=== PATIENT | male | born 1965 | race Caucasian/White ===

== ENCOUNTER → 2017-09-29 | Outpatient (CLI) | payer OTHER, BC ==
[~2017-09-29] MED LIST: BNC40 PO; KETO10TA PO; NRV/10 PO; OXYC-57 PO
[2017-09-29 12:19] LABS: BASO % 0.4 %; BASO ABS # 0.04 K/uL (0-0.2); EOS % 0.3 %; EOS ABS # 0.03 K/uL (0-0.5); HEMATOCRIT 47.9 % (42-52); IG# 0.04 K/uL (0.00-0.02); LYMPH % 17.3 %; LYMPH ABS # 1.92 K/uL (1.2-3.4); MEAN CELL VOLUME 87.6 fL (80-100); MEAN CORPUSCULAR HEMOGLOBIN 31.1 pg (25-34); MEAN CORPUSCULAR HGB CONC 35.5 g/dl (32-36); MEAN PLATELET VOLUME 8.6 fL (7.4-10.4); MONO % 8.8 %; MONO ABS # 0.97 K/uL (0.11-0.59); NEUT % 72.8 %; NEUT ABS # 8.08 K/uL (1.4-6.5); PLATELET COUNT 298 K/uL (130-400); RED CELL DISTRIBUTION WIDTH SD 41.9 fL (36.4-46.3); WHITE BLOOD COUNT 11.08 K/uL (4.8-10.8)
[2017-09-29 12:40] LABS: POTASSIUM 4.1 mmol/L (3.5-5.1)
== END | disposition home or self-care (01) ==
LOC: C.CPL 11:11
PROVIDERS: ATTEND Orthopaedic Surgery Sports Medicine
DX: Z01.810 Encounter for preprocedural cardiovascular examination (principal); Z01.812 Encounter for preprocedural laboratory examination; S83.209A Unspecified tear of unspecified meniscus, current injury, unspecified knee, initial encounter; X58.XXXA Exposure to other specified factors, initial encounter

== ENCOUNTER → 2017-10-05 | Day surgery (SDC) | payer OTHER, BC ==
[2017-10-04 11:19] VITALS: Ht 180.3 cm; Wt 103.6 kg
[~2017-10-05] VITALS: Ht 180.3 cm; Wt 103.6 kg
[~2017-10-05] MED LIST changes: +ATROPINE SULFATE 0.1 MG/ML 5ML SYR IV PRN; +CEFAZOLIN 1000MG IV PUSH 7.5 ML IV SCH; +CEFAZOLIN 2000MG IV PUSH 15 ML IV SCH; +DEXAMETHASONE SOD INJ 4 MG/ML VIAL ONE; +EpHEDrine SULFATE INJ 50 MG/ML AMP IV PRN; +EpINEphrine INJ 1MG/ML AMP 1 MG/ML AMP ONE; +FENTANYL CITRATE INJ 50 MCG/1 ML 2 ML VIAL IV PRN; +FENTANYL CITRATE INJ 50 MCG/1 ML 2 ML VIAL ONE; +KETOROLAC TROMETHAMINE 30 MG/ML VIAL ONE; +LACTATED RINGER'S 1000ML 1,000 ML IV SCH; +LIDOCAINE HCL 2% 2 ML VIAL (20MG/ML) ONE; +MIDAZOLAM HCL 1 MG/ML 2ML VIAL ONE; +ONDANSETRON INJ 2 MG/ML 2 ML VIAL IV PRN; +ONDANSETRON INJ 2 MG/ML 2 ML VIAL ONE; +OXYCODONE/ACETAMINOPHEN 5-325 TAB PO PRN; +PATIENT'S ALLERGY INFO NEEDS ENTERED SCH; +PATIENT'S HEIGHT AND/OR WEIGHT NEEDED SCH; +PROPOFOL IV EMULSION 10 MG/ML 20 ML VIAL IV ONE; +ROPIVACAINE 0.5% 5 MG/ML 30 ML VIAL ONE; +SODIUM CHLORIDE 0.9% 1000ML 1,000 ML IV SCH
--- NOTE | 2017-10-05 06:48 | History & Physical Bridge - [place] ---
H&P Re-Evaluation Bridge Note: I have examined the patient, reviewed the History & Physical and in the interval since the performance of the History & Physical I have noted the following changes of clinical significance: No changes noted
--- NOTE | 2017-10-05 07:41 | [facility] Post Operative Brief Note ---
Immediate Operative Summary Operative Date Oct 05, 2017. Pre-Operative Diagnosis Right Knee Medial Meniscus Tear Post-Operative Diagnosis Same + DJD Procedure(s) Performed Right Knee Arthroscopy, Partial Meniscectomy, Chondroplasty Surgeon Dr. Joshi Spooler Rubber Strand Surgeon(s) Whitney Adair PA-C Estimated Blood Loss Minimal Findings Consistent with Post-Op Diagnosis Specimens None Drains None Anesthesia Type General Complication(s) none Disposition Accompanied Pt To Recovery: no Disposition: Recovery Room / PACU
--- NOTE | 2017-10-05 07:46 | Discharge Instructions-SurgCtr ---
Discharge Instructions Date of Service Oct 05, 2017. Visit Reason for Visit: Right Knee Medial Meniscus Tear Discharge Discharge Diagnosis / Problem: RIGHT KNEE DJD AND MEDIAL MENISCUS TEAR Discharge Goals Goal(s): Decrease discomfort, Therapeutic intervention Activity Recommendations Activity Limitations: per Instructions/Follow-up section Weightbearing Status: Right partial (50 % PARTIAL WEIGHT BEARING ON RIGHT LEG ) Anesthesia . Post Anesthesia Instructions: If you have had General Anesthesia or IV Sedation: * Do not drive today. * Resume driving when surgeon permits. * Do not make important decisions or sign legal documents today. * Call surgeon for: 1. Temperature elevations greater than 101 degrees F. 2. Uncontrollable pain. 3. Excessive bleeding. 4. Persistent nausea and vomiting. 5. Medication intolerance (nausea, vomiting or rash). * For nausea and vomiting use only clear liquids such as: tea, soda, bouillon until nausea subsides, then gradually increase diet as tolerated. * If you have any concerns or questions, call your surgeon's office. If physician is unavailable and it is an emergency, call 911 or go to the nearest emergency room. . Instructions / Follow-Up Instructions / Follow-Up MEDICATIONS: * Resume previous medications unless instructed otherwise by your surgeon. * Always take pain medication on a full stomach or with food to avoid upset stomach. * Do not drink alcohol or drive while taking narcotics. * Ibuprofen or Tylenol may be taken if narcotic not needed. NO IBUPROFEN WHILE TAKING TORADOL SPECIAL CARE INSTRUCTIONS: __ None _X_ Keep extremity elevated and iced x 48 hours; apply ice 20-30 minutes 8-10 times/day. May remove at night. _X_ Crutches (50% PARTIAL WEIGHTBEARING FOR 2 WEEKS) __ May discard when able __ Brace/Post-op shoe __ 24 hrs/day __ Remove at night _X_ Dressing __ Maintain until seen in office, may shower with plastic over site _X_ Remove dressings in 24-48 hours and then may shower _X_ Cover incisions with band-aids after showering __ Do not remove steri-strips Call physician if chills or temperature rises above 102 degrees or pain unrelieved by prescribed pain medications. Office [phone] FOLLOW UP IN 2 WEEKS Diet Recommendations Home Diet: resume previous diet Procedures Procedures Performed: Right Knee Arthroscopy, Partial Meniscectomy, Chondroplasty Pending Studies Studies pending at discharge: no Medical Emergencies . Who to Call and When: Medical Emergencies: If at any time you feel your situation is an emergency, please call 911 immediately. . Non-Emergent Contact Non-Emergency issues call your: Surgeon . . "Provider Documentation" section prepared by Reginald Adair. .
[2017-10-05 08:35] VITALS: BP 164/103; PULSE 96; TEMP 37.5; O2SAT 93
--- NOTE | 2017-10-05 09:18 | Anesthesia Progress Nt - [facility] ---
Anesthesia Post Op Note Date & Time Oct 05, 2017 at 09:07 Vital Signs Pain Intensity: 0 Vital Signs Past 12 Hours Date Time Temp Pulse Resp B/P (MAP) Pulse Ox O2 Delivery O2 Flow Rate FiO2 10/05/17 08:35 37.5 96 20 164/103 (123) 93 Room Air 10/05/17 08:25 150/100 10/05/17 08:25 150/100 10/05/17 08:23 37.2 92 20 150/100 93 Room Air 10/05/17 08:22 92 19 10/05/17 08:22 92 19 10/05/17 08:22 93 19 96 10/05/17 08:22 93 19 96 10/05/17 08:20 142/91 10/05/17 08:20 142/91 10/05/17 08:17 88 19 10/05/17 08:17 88 19 10/05/17 08:17 88 19 96 10/05/17 08:17 88 19 96 10/05/17 08:15 143/91 10/05/17 08:15 143/91 10/05/17 08:12 92 21 95 10/05/17 08:12 92 21 95 10/05/17 08:12 91 21 10/05/17 08:12 91 21 10/05/17 08:10 145/93 10/05/17 08:10 145/93 10/05/17 08:07 95 22 96 10/05/17 08:07 93 22 10/05/17 08:07 95 22 96 10/05/17 08:07 93 22 10/05/17 08:05 150/95 10/05/17 08:05 150/95 10/05/17 08:02 99 27 93 10/05/17 08:02 99 27 10/05/17 08:02 99 27 93 10/05/17 08:02 99 27 10/05/17 08:01 156/100 10/05/17 08:01 156/100 10/05/17 08:00 143/100 10/05/17 08:00 143/100 10/05/17 07:57 92 24 97 10/05/17 07:57 92 24 10/05/17 07:57 92 24 10/05/17 07:57 92 24 97 10/05/17 07:55 123/94 10/05/17 07:55 123/94 10/05/17 07:52 85 20 97 10/05/17 07:52 85 20 97 10/05/17 07:52 86 20 10/05/17 07:52 86 20 10/05/17 07:50 118/78 10/05/17 07:50 118/78 10/05/17 07:47 127/83 10/05/17 07:47 127/83 10/05/17 07:47 37.7 83 14 127/83 96 Mask 6 10/05/17 06:30 36.7 102 20 178/141 (153) 95 Room Air Notes Mental Status: alert / awake / arousable, participated in evaluation Pt Amnestic to Procedure: Yes Nausea / Vomiting: adequately controlled Pain: adequately controlled Airway Patency, RR, SpO2: stable & adequate BP & HR: stable & adequate Hydration State: stable & adequate Anesthetic Complications: no major complications apparent The patient is a 52 y/o male with a h/o long standing poorly controlled hypertension despite being on Benicar and Amlodipine who is s/p R knee arthroscopy with Dr. Joshi. Preoperatively, the patient's BP was noted to be 178/114 and then 180/116 on recheck. The patient was asymptomatic denying chest pain, shortness of breath, lightheaded or dizziness or any other symptoms. He had no ischemic changes on ECG monitor. The patient took his Amlodipine but not his Benicar today. Per the patient, his BP is always very high in the doctor's office so much so that his PCP has him check his BP in the car with his own monitor prior to coming into the office for his appointment. He stated when he is at home his BP is usually 160s/90-100s and is even higher at the doctors. He said he has had hypertension since he was 21 and has had a significant workup for his longstanding hypertension. Intraop the patient did well although his BPs were labile ranging form 100s- 150s systolic and 60-80s diastolic. In recovery, his BP was running in the 150s/90-100s. The recovery room nurse had the patient take his Benicar from home prior to alerting me that the patient's blood pressures were rising. The patient's last BP on discharge was 166/100. Because the patient had already taken his oral home medication I did not want to treat him with IV antihypertensive as I was worried his blood pressure may drop too quickly making him symptomatic at home since he is accustomed to a higher blood pressure. The patient was in agreement. He stated that he will check his blood pressure again in an hours and throughout the day. He was instructed to call his PCP if it remains elevated and to go to the ED if it is significantly elevated >190/100 or if he has any chest pain, shortness of breath, lightheaded or dizziness, changes in vision or with any other complaints. He understands and agrees.
--- NOTE | 2017-10-05 10:01 | OPERATIVE REPORT ---
DATE OF OPERATION: 10/05/2017 SURGEON: Felix Joshi MD [employer] OPERATOR: LUIS Juarez PREOPERATIVE DIAGNOSES: 1. Right knee degenerative medial meniscus tear. 2. Right knee degenerative joint disease. 3. Right knee medial tibial stress fracture. POSTOPERATIVE DIAGNOSES: Same. PROCEDURE PERFORMED: 1. Right knee exam under anesthesia. 2. Right knee diagnostic arthroscopy. 3. Right knee arthroscopic partial medial meniscectomy. 4. Right knee chondroplasty of the medial femoral condyle. 5. Right knee chondroplasty of the patellofemoral joint. COMPLICATIONS: None. ESTIMATED BLOOD LOSS: Minimal. TOURNIQUET TIME: 18 minutes at 300 mmHg. ANESTHESIA: General. SPECIMENS: None. OPERATIVE INDICATIONS: The patient is a 52-year-old gentleman who injured his knee about 2 months ago in a work-related injury. He sustained a twisting injury in his knee and has had recurrent swelling since then. He had been treated conservatively without adequate relief. An MRI suggested medial meniscus tear as well as some mild DJD and a medial tibial stress fracture. We treated him for a month, limited weightbearing and limited activities and continued to have recurrent swelling and mechanical symptoms and pain in his knee consistent with meniscal pathology. The patient elected for surgical treatment for his meniscus. It was fully aware that this was not going to treat his medial tibial stress fracture. OPERATIVE FINDINGS: Examination under anesthesia of the right knee revealed a large knee joint effusion. Range of motion is 0-135. He had no clinical instability. Bladimir's is negative for mechanical symptoms. No varus or valgus instability. Good endpoint is Hubert, no pivot. ARTHROSCOPIC FINDINGS: Arthroscopic findings revealed a large serous knee effusion. He got some grade 2 changes of the undersurface of the patella. He has some age-related changes to the trochlea. In the intercondylar notch, the ACL and PCL were intact. In the medial compartment, there was a complex degenerative tear of the posterior horn of the medial meniscus. He had some grade 2 and grade 3 changes of the medial femoral condyle and medial tibial plateau. In the lateral compartment, the meniscus was normal. He did have some age-related changes to the cartilage of the femur as well as the tibia. OPERATIVE PROCEDURE: The patient taken to the operating room, identified and placed on the operating table in supine position. All contact areas were appropriately padded. IV antibiotics followed by anesthesia team. General anesthetic was implemented by anesthesia team. Right thigh tourniquet was then placed. The right knee was then examined under anesthesia with the findings as described above. The right leg was then prepped and draped in usual sterile fashion. The right leg was elevated and exsanguinated with an Esmarch and tourniquet was placed at 300 mmHg. Routine right knee arthroscopy was then performed through typical anteromedial and anterolateral portals. A superolateral outflow portal was established for outflow. Attention was then drawn to the medial compartment. With the use of motorized hand controlled instruments, a partial medial meniscectomy was then performed. We resected this back to stable tissue. Once this was complete, the shaver was then used to debride the loose cartilage at the end of the medial femoral condyle and top and medial tibial plateau. Attention was then drawn to the patellofemoral joint. With the use of the shaver, the loose cartilage on the undersurface of the patella was debrided back to stable tissue. Once this was complete, the arthroscopic instruments were placed throughout the knee joint. All extraneous debris was removed. The arthroscopic instruments were then removed from the joint and the portals were closed with 3-0 Prolene suture in a simple fashion. The knee was then cleaned and dried and a sterile dressing of Xeroform, 4 x 4, sterile cast padding and Vernon bandage were applied. The tourniquet was then let down for final tourniquet time of 18 minutes. The patient then brought out of general anesthesia and transferred to the recovery room in stable condition. The patient tolerated the procedure well with no complication. All needle and sponge counts were correct at the end of the operation. I attest to the content of the Intraoperative Record and any orders documented therein. Any exception s are noted below.
== END | disposition home or self-care (01) ==
LOC: X.SURG 06:21
PROVIDERS: ATTEND Orthopaedic Surgery Sports Medicine
DX: S83.241A Other tear of medial meniscus, current injury, right knee, initial encounter (principal); M17.11 Unilateral primary osteoarthritis, right knee; M84.361A Stress fracture, right tibia, initial encounter for fracture; X58.XXXA Exposure to other specified factors, initial encounter; I10 Essential (primary) hypertension; E66.9 Obesity, unspecified; Z88.8 Allergy status to other drugs, medicaments and biological substances; Z98.890 Other specified postprocedural states; Z90.89 Acquired absence of other organs; Z68.31 Body mass index [BMI] 31.0-31.9, adult